=== PATIENT | male | born 1985 | race Caucasian/White ===

== ENCOUNTER → 2017-12-18 | Outpatient (CLI) | payer BC ==
[2017-12-18 13:03] LABS: ABSOLUTE LYMPHOCYTES 2.2 thou/uL (0.8-5.3); ABSOLUTE MONOCYTES 0.3 thou/uL (0.0-1.2); BASOPHILS 0.1 %; EOSINOPHILS 0.2 %; HEMOGLOBIN 8.9 gm/dL (14.0-18.0); LYMPHOCYTES 40.1 %; MCH 39.1 pg (26.0-34.0); MCHC 35.7 g/dL (28.0-37.0); MCV 109.4 fL (80.0-100.0); MPV 8.3 fl. (7.2-11.1); NUCLEATED RBCS 0 /100WBC; POLYS 54.6 %; RBC 2.28 mil/uL (4.50-6.00); RDW-CV 17.1 % (10.5-14.5); WBC 5.6 thou/uL (4.0-11.0)
[2017-12-18 13:15] LABS: ALBUMIN 3.3 g/dL (3.4-5.0); CALCIUM 8.1 mg/dL (8.5-10.1); CREATININE 0.9 mg/dL (0.6-1.3); POTASSIUM 4.1 mmol/L (3.5-5.1); TOTAL BILIRUBIN 0.6 mg/dL (<0.1-1.0); TOTAL PROTEIN 7.3 g/dL (6.4-8.2)
[2017-12-18 13:54] LABS: PLATELET COUNT* 12 thou/uL (150-400)
== END ==
LOC: M.LAB 12:32
PROVIDERS: Physician Assistant
DX: R21 Rash and other nonspecific skin eruption (principal)

== ENCOUNTER → 2020-12-08 | Outpatient (CLI) | payer OTHER | LOC: M.RAD 12:01 | PROVIDERS: ATTEND Internal Medicine | DX: M47.814 Spondylosis without myelopathy or radiculopathy, thoracic region (principal); M47.26 Other spondylosis with radiculopathy, lumbar region; M54.41 Lumbago with sciatica, right side; G89.29 Other chronic pain; M54.6 Pain in thoracic spine ==